=== PATIENT | female | born 1940 | race Caucasian/White ===

== ENCOUNTER 2016-12-16 18:43 | Observation (INO) | payer OTHER ==
--- NOTE | ~2016-12-16 | US84 ---
[id number] [facility] [address] [place], [place] [address] [id number] I MR#: [id number] Acc #: [id number] NAME: MALIA STRINGER : 1940 SEX: F STUDY DATE/TIME: 12/16/2016 17:50 UNIT: CEDOF ROOM: [id number] STUDY DESCRIPTION: US LE Veins Complete Rashard Stdy Attending Physician: Sima White M.D. Referring Physician: Anup York M.D. Ordering Physician: Marce Magana M.D. Primary Care Physician: Anup York M.D. MEDICAL IMAGING REPORT This report is preliminary unless electronic signature is present EXAM Bilateral lower extremity venous ultrasound, 12/16/2016 HISTORY Swelling bilateral lower extremity for 1 day. History of hypertension. TECHNIQUE Venous ultrasound examination of both lower extremities was performed using grayscale, spectral Doppler and color flow Doppler imaging. FINDINGS The examination is negative. There is no evidence of deep venous thrombus from the groin to the lower calf bilaterally. Visualized greater saphenous veins are also patent. IMPRESSION Negative examination. No evidence of lower extremity deep venous thrombosis. Dictated by... Patrick Francisco M.D. THIS IS AN ELECTRONICALLY VERIFIED REPORT Patrick Francisco M.D. at 12/18/2016 8:06 PM ESTEVAN/topher TD: 12/17/2016 00:20 JOB #: [id number] MEDICAL IMAGING REPORT Page 1 of 1 COPY
--- NOTE | ~2016-12-16 | CR173 ---
[facility] A Service of [facility] & [facility] RADIOLOGY TEXT RESULTS PATIENT: MALIA STRINGER LOCATION: [facility] 241-01 : [birth year] UNIT #: [id number] AGE: [address]: Keturah Akbar MD SEX: F ORDER DR: [id number] [facility] [address] [place], [place] [address] [id number] I MR#: [id number] Acc #: [id number] NAME: MALIA STRINGER : 1940 SEX: F STUDY DATE/TIME: 12/16/2016 20:59 UNIT: [facility] ROOM: [facility] STUDY DESCRIPTION: CR Knee 3 Views Rt Attending Physician: Sima White M.D. Referring Physician: Anup York M.D. Ordering Physician: Juan Manuel Roth M.D. Primary Care Physician: Anup York M.D. MEDICAL IMAGING REPORT This report is preliminary unless electronic signature is present EXAM Right knee series, 12/16/2016. HISTORY Knee pain, redness and swelling. Happened today. FINDINGS AP, lateral and sunrise views of the right knee are presented. Diminished bony mineralization. No fracture or malalignment. Moderate narrowing, patellofemoral joint space compartment. Subtle chondrocalcinosis in the lateral joint space compartment. No joint effusion. No acute appearing soft tissue abnormality. Atherosclerotic arterial calcifications relatively prominent in the superficial femoral artery. Dictated by... Patrick Francisco M.D. THIS IS AN ELECTRONICALLY VERIFIED REPORT Patrick Francisco M.D. at 12/18/2016 8:06 PM ESTEVAN/baldev TD: 12/17/2016 05:58 JOB #: [id number] MEDICAL IMAGING REPORT Page 1 of 1 COPY
--- NOTE | ~2016-12-16 | DS ---
Unit #: [id number] #: [id number] Patient: MALIA STRINGER [id number] [address] [address] [id number] I MR#: [id number] NAME: MALIA STRINGER ROOM: 241 Age: 76 Sex: F Admission Date: 12/16/2016 : 1940 Discharge Date: Attending Physician: Keturah Akbar M.D. Referring Physician: Anup York M.D. Primary Care Physician: Anup York M.D. DISCHARGE SUMMARY DISCHARGE DIAGNOSES 1. Acute gouty polyarthritis. 2. Diabetes mellitus type 2, uncontrolled, secondary to steroids. 3. Hyponatremia. 4. History of arthritis. 5. Hypertension. 6. Hyperlipidemia. 7. Obesity. 8. Lifelong nonsmoker. 9. Mild protein malnutrition. CONSULTATION None. PROCEDURE None. DIAGNOSTIC STUDIES LABORATORY: Glucose 354, sodium 134, potassium 4.2, creatinine 1.3, albumin 2.7. WBC 10.7, hemoglobin 10.1, platelets 214,000. Blood cultures negative. Lactic acid 1.3. IMAGING: X-ray of the right knee shows moderate narrowing patellofemoral joint space. No effusion. No acute soft tissue abnormality. X-ray of the left ankle shows minimum soft tissue swelling overlying the medial malleolus. No acute findings. Ultrasound of the extremities negative for DVT. ALLERGIES Penicillin. DISCHARGE MEDICATIONS 1. Prednisone 30 mg p.o. daily for two days, followed by 20 mg p.o. daily for two days, and then stop. 2. Remeron 15 mg at bedtime. 3. Zoloft 50 mg daily. 4. Claritin 10 mg daily. 5. Phenergan 25 two times daily p.r.n. nausea. 6. Atorvastatin 80 daily. 7. Lopressor 50 p.o. b.i.d. 8. Lasix 40 daily. 9. Lantus 30 units subcutaneous b.i.d. Unit #: [id number] #: [id number] Patient: MALIA STRINGER 10. NovoLog low-dose sliding scale. 11. Aspirin 81 daily. 12. Indomethacin 50 mg p.o. b.i.d. 13. Lortab 5 mg p.o. b.i.d. p.r.n. 14. Plavix 75 mg daily. 15. Omeprazole 20 daily. 16. Nitroglycerin 0.4 sublingual p.r.n. chest pain. HOSPITALIZATION COURSE A 76 year old admitted because of right knee, left ankle, and right wrist pain and swelling. On examination, there is mild swelling but there is no erythema, no signs of septic arthritis. X-ray did not show any effusion of her knee. 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 Prednisone has been given. Indomethacin has been given. Lortab has been started. Pain is better. Currently, she is ambulating. Continue with prednisone tapering dose, Indomethacin, and Lortab at home and follow with home health and outpatient physical therapy. Currently, she is ambulating fine. Diabetes mellitus type 2: Uncontrolled secondary to steroids. I am going to taper down the steroids and increase her Lantus. She got a prescription for NovoLog sliding scale also. DISPOSITION The patient will be discharged home with home health. FOLLOWUP Follow with family physician in one week time. If her joint swelling and pain persists, she might need to see a salvage cutter as an outpatient. I discussed with her daughter and she understands the plan. Dictated by... Cesilia Soares/mary TD: 12/18/2016 10:20 JOB #: [id number] DISCHARGE SUMMARY Page 1 of 1 X Keturah Akbar MD X DISCHARGE SUMMARY
--- NOTE | ~2016-12-16 | CR20 ---
[facility] A Service [facility] RADIOLOGY TEXT RESULTS PATIENT: MALIA STRINGER LOCATION: [place] [address] : [birth year] UNIT #: [id number] AGE: [address]: Keturah Akbar MD SEX: F ORDER DR: [id number] [place] [id number] [facility] [place], [place] [address] [id number] I MR#: [id number] Acc #: [id number] NAME: MALIA STRINGER. : 1940 SEX: F STUDY DATE/TIME: 12/16/2016 15:04 UNIT: [facility] ROOM: [address] STUDY DESCRIPTION: CR Ankle Min 3 Views Lt Attending Physician: Sima White M.D. Referring Physician: Anup York M.D. Ordering Physician: Jeevan Melton M.D. Primary Care Physician: Anup York M.D. MEDICAL IMAGING REPORT This report is preliminary unless electronic signature is present EXAM Left ankle 3 views, 12/16/2016 INDICATIONS 76-year-old female with left medial ankle pain, redness and warmth to the touch today. No comparisons. FINDINGS There is no acute fracture. There is a well corticated ossicle inferior to the lateral portion of the tibia which may be from an old healed injury. Minimal soft tissue swelling overlying the medial malleolus. Ankle mortise intact. IMPRESSION No acute findings. There is some minimal soft tissue swelling overlying the medial malleolus. There is a well corticated ossicle adjacent to the lateral aspect of the tibia which may be from an old healed injury or accessory ossification center. Dictated by... Jerardo Woodson M.D. THIS IS AN ELECTRONICALLY VERIFIED REPORT Jerardo Woodson M.D. at 12/17/2016 8:39 AM KAJAL/topher TD: 12/16/2016 21:01 JOB #: [id number] MEDICAL IMAGING REPORT [facility] A Service [facility] RADIOLOGY TEXT RESULTS PATIENT: MALIA STRINGER LOCATION: [place] [id number] : 42 UNIT #: [id number] AGE: [address]: Keturah Akbar MD SEX: F ORDER DR: Page 1 of 1 COPY
--- NOTE | ~2016-12-16 | HP ---
Unit #: [id number] #: [id number] Patient: MALIA STRINGER [id number] [address] [place], [place] [address] [id number] I MR#: [id number] NAME: MALIA STRINGER. ROOM: 241 Age: 76 Sex: F Admission Date: 12/16/2016 : 1940 Attending Physician: Sima White M.D. Referring Physician: Anup York M.D. Primary Care Physician: Anup York M.D. HISTORY AND PHYSICAL CHIEF COMPLAINT Pain at the right knee and the left ankle. HISTORY OF PRESENT ILLNESS The patient is a 76-year-old female with a history of hypertension, hyperlipidemia, diabetes, obesity brought to the emergency room complaining of the pain in the right knee and the left ankle. The patient stated that the patient was diagnosed with a spider bite last Wednesday with cellulitis of the right wrist. The patient was started on Keflex. The patient stated that the patient was doing fine and then started noticing the swelling of the right medial knee followed with pain at the left ankle. The patient stated the patient is not able to move or bend her knee secondary to the pain and swelling and also complaining of the pain at the left knee. The patient is also not able to ambulate secondary to the pain. The patient has been on antibiotics with Keflex and cellulitis/spider bite is resolving on the upper right wrist and there is only minimal erythema and no tenderness. The patient is being admitted for the above reasons to rule out gouty arthritis/septic. PAST MEDICAL HISTORY History of coronary artery disease, hypertension, hyperlipidemia, insulin-dependent diabetes mellitus type 2, obesity, lifelong nonsmoker. PAST SURGICAL HISTORY Hysterectomy, appendectomy. SOCIAL HISTORY The patient is a lifelong nonsmoker with no history of alcohol or tobacco abuse. FAMILY HISTORY Father from a myocardial infarction at age 68. Mother at 71. ALLERGIES Penicillin. HOME MEDICATIONS 1. Venlafaxine. 2. Low dose aspirin. 3. Remeron. 4. Omeprazole. 5. Anusol. 6. Phenergan. 7. Proctozone. Unit #: [id number] #: [id number] Patient: MALIA STRINGER 8. Neurontin. 9. Metformin. 10. Lantus. 11. Metoprolol. 12. Lipitor. 13. Lisinopril. 14. Lisinopril. 15. Nitroglycerin. 16. Brilinta. REVIEW OF SYSTEMS A 14-point review of systems was performed and only pertinent positive findings are described above. Remaining are negative. PHYSICAL EXAMINATION GENERAL APPEARANCE: The patient is lying on the bed not in acute distress. VITAL SIGNS: Temperature 97.7. Pulse 78. Respiratory rate 16. Blood pressure 129/83 sating 100% on room air. HEENT: Head normocephalic, atraumatic. Pupils equal, round, reacting to light and accommodation. Extraocular movements are intact. Normal and moist mucous membranes. NECK: Supple. No JVD. LUNGS: Clear to auscultation bilaterally. No rhonchi. No wheezing. HEART: Regular rate and rhythm. ABDOMEN: Soft, positive bowel sounds. EXTREMITIES: The patient's right upper extremity at the right wrist is with resolving cellulitis/spider bite treated with oral Keflex. The patient complains of the pain on the right middle knee with swelling but there is no erythema. Positive for tenderness and minimal fullness. The patient also complains of left ankle pain with minimal erythema and swelling. NEUROLOGIC: Alert, awake, oriented. No gross focal motor deficit. DIAGNOSTIC STUDIES LABORATORY: Glucose 369, BUN 20, creatinine 1.1, sodium 131, potassium 3.7, chloride 95, bicarb 23, calcium 8.8, AST 26, ALT 20. BNP 72. Lactic acid 1.3. WBC 14.6, hemoglobin 11.5, hematocrit 36.4, platelets 261, neutrophils 85.7%. Sed rate 100. IMAGING: X-ray of the left ankle is negative. Ultrasound venous Doppler is negative for any DVT. ASSESSMENT 1. The patient has right knee pain and left ankle pain. 2. Hyponatremia. 3. Arthritis. 4. Diabetes mellitus. PLAN To admit the patient to observation with med/surg. We will start the patient on empiric Zosyn with empiric diagnosis of gouty arthritis. Check the uric acid level and check the x-ray of the right knee to rule out the fluid. If the fluid is positive, arthrocentesis for the crystals. The patient is okay to take home medication after pharmacy verification. Lactic acid is 1.3 and the patient has no fevers and no inflammatory signs at this time and continue the sliding scale low dose and further recommendations will follow. Unit #: [id number] #: [id number] Patient: KYARAKATELYNMALIA Tyler Dictated by Cesilia Mayorga TD: 12/17/2016 06:24 JOB #: [id number] HISTORY AND PHYSICAL Page 1 of 1 X X HISTORY AND PHYSICAL
[2016-12-16 14:56] LABS: BASOPHIL# 0.1 X10e3 (0-0.3); BASOPHIL% 0.4 % (0-2.5); EOSINOPHIL# 0.1 X10e3 (0-0.7); EOSINOPHIL% 0.4 % (0.0-7.0); HEMATOCRIT 36.4 % (35.0-45.0); HEMOGLOBIN 11.5 gm/dL (12.0-16.0); LYMPHOCYTE# 1.3 X10e3 (1.0-3.5); LYMPHOCYTE% 8.9 % (17.0-45.0); MEAN CELL VOLUME 79.7 FL (83-96); MEAN CORPUSCULAR HEMOGLOBIN 25.2 PG (28-34); MEAN CORPUSCULAR HGB CONC 31.6 g/dL (30-36); MEAN PLATELET VOLUME 9.9 FL (6.5-11.5); MONOCYTE# 0.7 X10e3 (0-1.0); MONOCYTE% 4.6 % (3.0-12.0); NEUTROPHIL# 12.5 X10e3 (1.5-7.1); NEUTROPHIL% 85.7 % (40-75); PLATELET COUNT 261 X10e3 (140-420); RED BLOOD COUNT 4.57 X10e (3.90-5.30); WHITE BLOOD COUNT 14.6 X10e3 (4.0-10.5)
[2016-12-16 14:57] LABS: DIFF IND NO
[2016-12-16 15:24] LABS: BUN/CREATININE RATIO 18.18; CALCIUM SERUM 8.8 mg/dL (8.4-10.2); CREATININE SERUM 1.1 mg/dL (0.6-1.4); GLOM FILT RATE Estimated 51.6 mL/min (>60); POTASSIUM 3.7 mmol/L (3.5-5.1)
[~2016-12-16 18:43] MED LIST: ACTOS; ANUSOL; ASPIRIN81 M1 PO; BACTRIM DS TABL1 TA1 PO; BENICAR PO; BRILINTA90 MG PO; BUSPAR15 MG PO; BUSPIRONE HCL15 MG PO; CELEXA PO; COREG3.125 MG PO; GLIPIZIDE10 MG PO; HYDRALAZINE HCL25 MG PO; IMDUR-ER30 M1 PO; JANUVIA PO; KLONOPIN0.5 MG PO; LANTUS100 U/ML SUBQ; LIPITOR PO; LISINOPRIL-HCTZ1 T19 PO; LISINOPRIL10 MG PO; LOW DOSE ASPIRI81 M1 PO; METFORMIN HCL1000 M1 PO; METFORMIN HCL500 M1 PO; METOPROLOL TAR100 MG PO; METOPROLOL TAR25 MG PO; NATEGLINIDE120 MG PO; NEURONTIN PO; NEURONTIN100 MG PO; NEURONTIN300 MG PO; NITROGLYCERIN0.4 MG SL; OMEPRAZOLE20 M2 PO; PHENERGAN25 M1 PO; PRAVACHOL PO; PRAVASTATIN SOD40 MG PO; PROCTOZONE-HC30 G2; REMERON15 MG PO; VENLAFAXINE HC150 MG PO; VENLAFAXINE HCL75 M1 PO; VESICARE PO; VICODIN 5/1 TAB 5/50 PO; [UNRECOGNIZED DRUG - REMARK]
[2016-12-16] MEDS ORDERED: FUROSEMIDE40 MG PO (20:31)
[2016-12-16] MEDS ORDERED: LOPRESSOR PO (20:32)
[2016-12-16] MEDS ORDERED: CLOPIDOGREL75 MG PO (20:33)
[2016-12-16] MEDS ORDERED: CLARITIN10 M2 PO (20:34)
[2016-12-16] MEDS ORDERED: PHENERGAN25 M1 PO (20:34)
[2016-12-16] MEDS ORDERED: ASPIRIN81 MG PO (20:35)
[2016-12-16] MEDS ORDERED: SERTRALINE HCL50 M1 PO (20:35)
[2016-12-16] MEDS ORDERED: REMERON SOLTAB15 M1 PO (20:36)
[2016-12-16] MEDS ORDERED: OMEPRAZOLE20 M2 PO (20:37)
[2016-12-16] MEDS ORDERED: ATORVASTATIN CA80 MG PO (20:37)
[2016-12-16] MEDS ORDERED: NITROSTAT0.4 MG SL (20:38)
[2016-12-16] MEDS ORDERED: LANTUS100 U/ML SUBQ (20:40)
[2016-12-17 12:07] LABS: BASOPHIL% 0.1 % (0-2.5); EOSINOPHIL% 0.3 % (0.0-7.0); HEMATOCRIT 32.4 % (35.0-45.0); HEMOGLOBIN 10.4 gm/dL (12.0-16.0); LYMPHOCYTE# 1.3 X10e3 (1.0-3.5); LYMPHOCYTE% 12.5 % (17.0-45.0); MEAN CORPUSCULAR HEMOGLOBIN 25.4 PG (28-34); MEAN CORPUSCULAR HGB CONC 32.2 g/dL (30-36); MEAN PLATELET VOLUME 9.7 FL (6.5-11.5); MONOCYTE# 0.5 X10e3 (0-1.0); MONOCYTE% 4.9 % (3.0-12.0); NEUTROPHIL# 8.4 X10e3 (1.5-7.1); NEUTROPHIL% 82.2 % (40-75); PLATELET COUNT 214 X10e3 (140-420); RED CELL DISTRIBUTION WIDTH 16.2 % (11.0-15.5); WHITE BLOOD COUNT 10.2 X10e3 (4.0-10.5)
[2016-12-17 12:11] LABS: DIFF IND NO
[2016-12-17 12:38] LABS: BUN/CREATININE RATIO 21.53; CALCIUM SERUM 8.5 mg/dL (8.4-10.2); CREATININE SERUM 1.3 mg/dL (0.6-1.4); GLOM FILT RATE Estimated 40.4 mL/min (>60); POTASSIUM 3.6 mmol/L (3.5-5.1); URIC ACID 5.9 mg/dL (2.6-7.2)
[2016-12-18 06:57] LABS: HEMATOCRIT 31.8 % (35.0-45.0); HEMOGLOBIN 10.1 gm/dL (12.0-16.0); MEAN CELL VOLUME 80.7 FL (83-96); MEAN CORPUSCULAR HEMOGLOBIN 25.6 PG (28-34); MEAN CORPUSCULAR HGB CONC 31.8 g/dL (30-36); MEAN PLATELET VOLUME 10.2 FL (6.5-11.5); RED BLOOD COUNT 3.94 X10e (3.90-5.30); RED CELL DISTRIBUTION WIDTH 15.7 % (11.0-15.5); WHITE BLOOD COUNT 10.7 X10e3 (4.0-10.5)
[2016-12-18 07:40] LABS: ALBUMIN SERUM 2.7 g/dL (3.5-5.0); BILIRUBIN,TOTAL 0.5 mg/dL (0.2-2.0); BUN/CREATININE RATIO 29.23; CALCIUM SERUM 8.4 mg/dL (8.4-10.2); CREATININE SERUM 1.3 mg/dL (0.6-1.4); GLOM FILT RATE Estimated 40.4 mL/min (>60); POTASSIUM 4.2 mmol/L (3.5-5.1); PROTEIN TOTAL SERUM 5.9 g/dL (6.0-8.3)
[2016-12-18] MEDS ORDERED: PREDNISONE PO (10:32)
[2016-12-18] MEDS ORDERED: NOVOLOG100 U/ML SUBQ (10:35)
[2016-12-18] MEDS ORDERED: INDOMETHACIN50 MG PO (10:36)
[2016-12-18] MEDS ORDERED: HYDROCODON-ACE1 EAC7 PO (10:36)
== END 2016-12-18 10:58 | disposition home or self-care (01) ==
LOC: CED 18:43 → CEDOF 19:45 → C2A 12-17 01:41
PROVIDERS: Emergency Medicine; Internal Medicine
DX: M10.09 Idiopathic gout, multiple sites (principal); E87.1 Hypo-osmolality and hyponatremia; E11.65 Type 2 diabetes mellitus with hyperglycemia; Z79.4 Long term (current) use of insulin; I10 Essential (primary) hypertension; Z90.710 Acquired absence of both cervix and uterus; E78.5 Hyperlipidemia, unspecified; E66.9 Obesity, unspecified; E44.1 Mild protein-calorie malnutrition; I25.10 Atherosclerotic heart disease of native coronary artery without angina pectoris; I25.2 Old myocardial infarction; Z88.0 Allergy status to penicillin; Z79.82 Long term (current) use of aspirin
CPT/HCPCS: 36415; 73562; 73610; 80048; 80053; 82947; 83605; 83880; 84550; 85025; 85027; 85652; 87040; 93970; 94760; 96372; 97162; 97166; 97530; 97535; 99285; G0378; G8978-GP; G8979-GP; G8987-GO; G8988-GO; J1650; J1815